=== PATIENT | male | born 1955 | race American Indian/Alaskan Native ===

== ENCOUNTER 2020-07-21 05:10 | Emergency (ER) | payer SELFPAY ==
[2020-07-21 05:36] VITALS: BP 170/100
[2020-07-21] MEDS ORDERED: ACETAMINOPHEN 325 MG TAB PO ONE (05:44)
== END 2020-07-21 07:20 | disposition left against medical advice (07) ==
LOC: ED 05:10
DX: R51.9 Headache, unspecified (principal); Z53.21 Procedure and treatment not carried out due to patient leaving prior to being seen by health care provider